=== PATIENT | female | born 1985 | race African-American/Black ===

== ENCOUNTER 2016-11-19 18:50 | Inpatient (IN) | payer OTHER ==
--- NOTE | ~2016-11-19 | CR72 ---
[facility] A Service of [facility] & [facility] RADIOLOGY TEXT RESULTS PATIENT: PEDRO CORBIN LOCATION: [facility] [id number] : 85 UNIT #: [id number] AGE: [address]: Camilo Flowers MD SEX: F ORDER DR: [id number] [facility] [address] [place], [place] [address] [id number] I MR#: [id number] Acc #: [id number] NAME: PEDRO CORBIN : 1985 SEX: F STUDY DATE/TIME: 11/19/2016 21:42 UNIT: [facility] ROOM: [facility] STUDY DESCRIPTION: CR Chest Single View Portable Attending Physician: Camilo Flowers M.D. Ordering Physician: Love Dexter M.D. Primary Care Physician: No Primary Care Physician MEDICAL IMAGING REPORT This report is preliminary unless electronic signature is present EXAM Portable chest. HISTORY Weakness, increasing blood sugar, diabetic; symptoms for 2 days. FINDINGS A single AP portable view of the chest shows both lungs to be clear. The heart is normal in size. The mediastinal contour is normal. No significant bone abnormalities are seen. IMPRESSION Normal portable chest. Dictated by... Mary Montgomery M.D. THIS IS AN ELECTRONICALLY VERIFIED REPORT Mary Montgomery M.D. at 11/20/2016 8:43 PM Rani TD: 11/20/2016 11:22 JOB #: [id number] MEDICAL IMAGING REPORT COPY
--- NOTE | ~2016-11-19 | HP ---
Unit #: [id number] #: [id number] Patient: PEDRO CORBIN [id number] [address] [address] [id number] I MR#: [id number] NAME: PEDRO CORBIN ROOM: 36305 Age: 31 Sex: F Admission Date: 11/19/2016 : 1985 Attending Physician: Love Dexter M.D. Primary Care Physician: Primary Care Physician No HISTORY AND PHYSICAL CHIEF COMPLAINT Uncontrolled insulin-dependent diabetes mellitus, suicidal ideation, noncompliance. HISTORY OF PRESENT ILLNESS This 31-year-old female with IDDM, polysubstance abuse, noncompliance, was [facility] for uncontrolled diabetes mellitus. The patient is a poor historian, and I have to prompt her several times to answer my questions. Apparently, she is homeless and not taking her insulin or any other medications. She presented to [facility] with suicidal ideation stating that she wanted to walk into traffic. She was found to have an Accu-Chek of greater than 600 and sent to this ER for further treatment. Labs in this ER show a serum glucose of 877, pseudohyponatremia, no acidosis. She currently is receiving 2 liters of saline and an insulin drip at 5 units per hour was ordered by the ER physician. She was last admitted for diabetic ketoacidosis March 2016. PAST MEDICAL HISTORY 1. IDDM. Details are unknown. Patient last was hospitalized at this facility March 2016 for diabetic ketoacidosis with PID. Apparently, her usual Accu-Cheks range from 200-300. 2. Polysubstance abuse. 3. Suicidal ideation requiring admission to [facility] in the past. 4. No previous surgeries. ALLERGIES None. HOME MEDICATIONS None. [facility] her medications included: 1. Sliding scale NovoLog. 2. Levemir 26 units daily. 3. Neurontin 300 mg daily. 4. Cymbalta 30 mg daily. 5. Vistaril 50 mg q.6 h. p.r.n. 6. Trazodone 50 mg p.o. h.s. p.r.n. SOCIAL HISTORY The patient states that she is homeless. Smokes one pack per day of tobacco. Uses crack cocaine. States that her alcohol use is dependent upon her drug abuse. She is somewhat vague. Unit #: [id number] #: [id number] Patient: PEDRO CORBIN FAMILY HISTORY Positive for diabetes. REVIEW OF SYSTEMS Impossible to obtain as it is difficult for me to get the patient to answer my questions. PHYSICAL EXAMINATION VITAL SIGNS: Temperature 98.4, pulse 68, respirations 20, blood pressure 104/58, O2 saturation 99% on room air. GENERAL: Unhappy-appearing, thin, 31-year-old female currently in no acute distress. HEENT: Eyes PERRLA. Extraocular muscles are intact. Pharynx benign. NECK: Supple without adenopathy or thyromegaly. CHEST: Clear. HEART: Tachy S1, S2 without murmur. ABDOMEN: Bowel sounds are present. No hepatosplenomegaly, tenderness or masses. EXTREMITIES: Without clubbing, cyanosis, or edema. Pedal pulses are present. No ulcers on the feet. No definite track fernando over the arms. NEUROLOGIC: Patient is mildly somnolent but easily arousable. Cranial nerves intact. She has equal strength throughout. She seems very unhappy at being in the ER. DIAGNOSTIC STUDIES LABORATORY: Hematocrit 45.7, normal white count and platelet count. SMA-12 glucose 877, sodium 125 which corrects to 138, chloride 88. BHOB 0.91 which is mildly elevated. Beta HCG is negative. Urinalysis positive glucose, no significant white or red cells. ASSESSMENT 1. Uncontrolled insulin-dependent diabetes mellitus, patient is noncompliant. 2. Suicidal ideation. Patient wanted to run in traffic. She was sent from [facility] to this facility for clearance. 3. Noncompliance with medicines. 4. Polysubstance abuse. 5. Homeless. 6. Pseudohyponatremia. PLAN 1. IV insulin drip until Accu-Cheks improve. 2. IV fluids, obtain frequent chemistries. 3. Hemoglobin A1c. Urine toxicology screen and chest x-ray. 4. DVT and gastritis prophylaxis. 5. Restart Neurontin, Cymbalta and trazodone. 6. 72-hour hold with one-to-one sitter. 7. [facility] to see when patient is medically stable. Dictated by Love Dexter M.D. AML/nathan TD: 11/19/2016 22:09 Unit #: [id number] #: [id number] Patient: PEDRO CORBIN JOB #: [id number] HISTORY AND PHYSICAL X Love Dexter MD X HISTORY AND PHYSICAL
--- NOTE | ~2016-11-19 | DS ---
Unit #: [id number] #: [id number] Patient: PEDRO CORBIN [id number] [address] [address] [id number] I MR#: [id number] NAME: PEDRO CORBIN ROOM: 241 Age: 31 Sex: F Admission Date: 11/19/2016 : 1985 Discharge Date: 11/20/2016 Attending Physician: Camilo Flowers M.D. Primary Care Physician: No Primary Care Physician DISCHARGE SUMMARY DISCHARGE DIAGNOSES 1. Hyperosmotic hyperglycemia state. 2. Uncontrolled type 2 diabetes. 3. Suicidal ideation. 4. Noncompliance. 5. Polysubstance abuse. 6. Homelessness. WILDLIFE ECOLOGY PROFESSOR None. PROCEDURE None. DIAGNOSTIC STUDIES LABORATORY: On the morning of discharge, the patient's labs with BMP: Glucose 380, BUN 11, creatinine 0.7, sodium 137, potassium 4.3, chloride 107, CO2 of 27, calcium 8.5. Magnesium 1.7. Total protein 5.4, total bilirubin 0.8, AST 12, ALT 14, alkaline phosphatase 46. Hemoglobin A1c not done. CBC with WBC of 6.4, RBC 4.63, hemoglobin 4.1, hematocrit 42.4, MCV 91.2, MCH 30.3, MCHC 33.3, RDW 15.1, platelets 181,000, MPV is 9.9. The patient's urine drug screen was positive for cocaine. No evidence of UTI on urinalysis. IMAGING: None. HOSPITAL COURSE The patient is a 31-year-old female with history of insulin-dependent diabetes, polysubstance abuse, noncompliant, homelessness who was sent from [facility] due to uncontrolled diabetes. The patient states that she is homeless and presented to [facility] with suicidal ideation stating that she wanted to walk into traffic. Accu-Cheks there done was greater than 600 and was sent to [facility] for further treatment. Her serum glucose in the ER was 877 with pseudohyponatremia but no acidosis. She had received 2 L of saline and was started on an insulin drip of 5 units. Following only a couple of hours, repeat Accu-Chek was down to 297, then down to 151. Therefore, the insulin drip was stopped. She had continued to receive IV fluid. Was given Levemir 18 units subcutaneously and started on 3 units with meals along with a low-dose sliding scale insulin. At this time, the patient is stable with regards to her blood sugar. At this time, she does deny any suicidal thoughts nor homicidal thoughts to me. The patient is under 72 hour hold from [facility]. I am asking [facility] to re-evaluate this patient for the need of continued treatment there with Unit #: [id number] #: [id number] Patient: PEDRO CORBIN for her presentation to them with suicidal thoughts as well as ongoing substance abuse. At this time, the patient is medically stable to be discharged over there if continuing treatment is needed there. DISCHARGE CONDITION Stable. Dictated by... Fran Lindo PA-C for Whit Hernandez TD: 11/20/2016 10:06 JOB #: [id number] DISCHARGE SUMMARY X X DISCHARGE SUMMARY
[~2016-11-19 18:50] MED LIST: LANTUS100 U/ML; METFORMIN HYDRO25 GM
[2016-11-19 18:59] LABS: BASOPHIL# 0.1 X10e3 (0-0.3); BASOPHIL% 0.8 % (0-2.5); EOSINOPHIL# 0.1 X10e3 (0-0.7); EOSINOPHIL% 1.2 % (0.0-7.0); HEMATOCRIT 45.7 % (35.0-45.0); HEMOGLOBIN 14.8 gm/dL (12.0-16.0); LYMPHOCYTE% 31.4 % (17.0-45.0); MEAN CELL VOLUME 94.1 FL (83-96); MEAN CORPUSCULAR HEMOGLOBIN 30.5 PG (28-34); MEAN CORPUSCULAR HGB CONC 32.4 g/dL (30-36); MEAN PLATELET VOLUME 10.4 FL (6.5-11.5); MONOCYTE# 0.3 X10e3 (0-1.0); MONOCYTE% 5.1 % (3.0-12.0); NEUTROPHIL# 3.9 X10e3 (1.5-7.1); NEUTROPHIL% 61.5 % (40-75); PLATELET COUNT 196 X10e3 (140-420); RED BLOOD COUNT 4.85 X10e (3.90-5.30); RED CELL DISTRIBUTION WIDTH 14.9 % (11.0-15.5); WHITE BLOOD COUNT 6.4 X10e3 (4.0-10.5)
[2016-11-19 19:05] LABS: DIFF IND NO
[2016-11-19 19:12] LABS: URINE SOURCE CLEAN CATCH
[2016-11-19 19:16] LABS: URINE APPEARANCE CLEAR; URINE BILIRUBIN NEG (NEG); URINE BLOOD NEG (NEG); URINE COLOR YELLOW; URINE GLUCOSE >1000 MG/DL (NEG); URINE KETONE NEG (NEG); URINE LEUKOCYTE ESTERASE NEG (NEG); URINE NITRATE NEG (NEG); URINE PH 7.5 (5-8); URINE PROTEIN NEG (NEG); URINE SPECIFIC GRAVITY 1.036 (1.003-1.035); URINE UROBILINOGEN 0.2 MG/DL (NEG)
[2016-11-19 19:22] LABS: CULTURE INDICATED? NO
[2016-11-19 19:45] LABS: ALBUMIN SERUM 3.7 g/dL (3.5-5.0); ALKALINE PHOSPHATASE 71 U/L (32-92); ALT (SGPT) 17 U/L (10-40); AST (SGOT) 15 U/L (10-42); BETA HYDROXYBUTYRATE 0.91 MMOL/L (0.02-0.27); BILIRUBIN, DIRECT 0.1 mg/dL (0.0-0.2); BILIRUBIN,INDIRECT 1.2 mg/dL (0.0-0.9); BILIRUBIN,TOTAL 1.3 mg/dL (0.2-2.0); BLOOD UREA NITROGEN 15 mg/dL (9-23); BUN/CREATININE RATIO 18.75; CALCIUM SERUM 9.3 mg/dL (8.4-10.2); CARBON DIOXIDE 27 mmol/L (22-31); CHLORIDE 88 mmol/L (100-111); CREATININE SERUM 0.8 mg/dL (0.6-1.4); GLOM FILT RATE Estimated ABOVE60 mL/min (>60); POTASSIUM 4.8 mmol/L (3.5-5.1); PROTEIN TOTAL SERUM 6.6 g/dL (6.0-8.3)
[2016-11-19 19:46] LABS: GLUCOSE FASTING 877 mg/dL (70-110)
[2016-11-19 19:47] LABS: SODIUM 125 mmol/L (135-145)
[2016-11-19 21:56] LABS: AMPHETAMINE NEG (NEG); BARBITURATES NEG (NEG); BENZODIAZEPINES NEG (NEG); COCAINE POS (NEG); MARIJUANA NEG (NEG); OPIATES NEG (NEG); TRICYCLIC ANTIDEPRESSANTS NEG (NEG); U METHADONE NEG (NEG)
[2016-11-19 22:00] LABS: BLOOD UREA NITROGEN 12 mg/dL (9-23); CALCIUM SERUM 8.7 mg/dL (8.4-10.2); CARBON DIOXIDE 25 mmol/L (22-31); CHLORIDE 102 mmol/L (100-111); CREATININE SERUM 0.8 mg/dL (0.6-1.4); GLOM FILT RATE Estimated ABOVE60 mL/min (>60); GLUCOSE FASTING 494 mg/dL (70-110); MAGNESIUM 1.8 mg/dL (1.6-3.0); POTASSIUM 3.8 mmol/L (3.5-5.1); SODIUM 133 mmol/L (135-145)
[2016-11-19 23:51] LABS: BLOOD UREA NITROGEN 11 mg/dL (9-23); BUN/CREATININE RATIO 15.71; CALCIUM SERUM 9.1 mg/dL (8.4-10.2); CARBON DIOXIDE 27 mmol/L (22-31); CHLORIDE 106 mmol/L (100-111); CREATININE SERUM 0.7 mg/dL (0.6-1.4); GLOM FILT RATE Estimated ABOVE60 mL/min (>60); GLUCOSE FASTING 193 mg/dL (70-110); MAGNESIUM 1.8 mg/dL (1.6-3.0); POTASSIUM 3.7 mmol/L (3.5-5.1); SODIUM 138 mmol/L (135-145)
[2016-11-20 06:02] LABS: HEMATOCRIT 42.2 % (35.0-45.0); HEMOGLOBIN 14.1 gm/dL (12.0-16.0); MEAN CELL VOLUME 91.2 FL (83-96); MEAN CORPUSCULAR HEMOGLOBIN 30.3 PG (28-34); MEAN CORPUSCULAR HGB CONC 33.3 g/dL (30-36); MEAN PLATELET VOLUME 9.9 FL (6.5-11.5); RED BLOOD COUNT 4.63 X10e (3.90-5.30); RED CELL DISTRIBUTION WIDTH 15.1 % (11.0-15.5); WHITE BLOOD COUNT 6.4 X10e3 (4.0-10.5)
[2016-11-20 06:36] LABS: ALBUMIN SERUM 2.9 g/dL (3.5-5.0); ALKALINE PHOSPHATASE 46 U/L (32-92); ALT (SGPT) 14 U/L (10-40); AST (SGOT) 12 U/L (10-42); BILIRUBIN,TOTAL 0.8 mg/dL (0.2-2.0); BLOOD UREA NITROGEN 11 mg/dL (9-23); BUN/CREATININE RATIO 15.71; CALCIUM SERUM 8.5 mg/dL (8.4-10.2); CARBON DIOXIDE 27 mmol/L (22-31); CHLORIDE 107 mmol/L (100-111); CREATININE SERUM 0.7 mg/dL (0.6-1.4); GLOM FILT RATE Estimated ABOVE60 mL/min (>60); GLUCOSE FASTING 380 mg/dL (70-110); MAGNESIUM 1.7 mg/dL (1.6-3.0); POTASSIUM 4.3 mmol/L (3.5-5.1); PROTEIN TOTAL SERUM 5.4 g/dL (6.0-8.3); SODIUM 137 mmol/L (135-145)
== END 2016-11-20 20:00 | DRG 638 ==
LOC: CED 18:50 → CEDOF 21:00 → C2A 11-20 01:15
PROVIDERS: Emergency Medicine; Internal Medicine
DX: E11.00 Type 2 diabetes mellitus with hyperosmolarity without nonketotic hyperglycemic-hyperosmolar coma (NKHHC) (principal); R45.851 Suicidal ideations; E87.1 Hypo-osmolality and hyponatremia; Z79.4 Long term (current) use of insulin; Z91.14 Patient's other noncompliance with medication regimen; F14.10 Cocaine abuse, uncomplicated; Z59.0 Homelessness; F17.210 Nicotine dependence, cigarettes, uncomplicated; E11.65 Type 2 diabetes mellitus with hyperglycemia
CPT/HCPCS: 36415; 71010; 80048; 80053; 80076; 80307; 81003; 82010; 82947; 83036; 83735; 84703; 85025; 85027; 87806; 99285; J1644; J1815

== ENCOUNTER 2016-11-20 20:18 | Inpatient (IN) | payer OTHER ==
--- NOTE | ~2016-11-20 | HP ---
Unit #: [id number] #: [id number] Patient: PEDRO CORBIN [id number] [facility] [address] [place] [address] [id number] I MR#: [id number] NAME: PEDRO CORBIN ROOM: P173 Age: 31 Sex: F Admission Date: 11/20/2016 : 1985 Attending Physician: Lopez Vogt M.D. Admitting Physician: Lopez Vogt M.D. Primary Care Physician: Primary Care Physician No HISTORY AND PHYSICAL Pedro is a 31 year old admitted to [facility] with depression and verbalizing wanting to hurt herself. She was admitted to [facility] on 11/19/16 because of her uncontrolled insulin-dependent diabetes mellitus. When medically stable, she was transferred to [facility] for psychiatric care. Patient was seen and H and P dated 11/19/16 and discharge summary dated 11/20/16 were reviewed. These are current. No changes. Please see documents from [facility]. Dictated by... Paula Kessler P.A.-C. for Whit Hernandez/edith TD: 11/22/2016 17:33 JOB #: [id number] HISTORY AND PHYSICAL X Paula Kessler HISTORY AND PHYSICAL
--- NOTE | ~2016-11-20 | CO ---
Unit #: [id number] #: [id number] Patient: PEDRO CORBIN [id number] [place] [address] [id number] I MR#: [id number] NAME: PEDRO CORBIN ROOM: 73 Age: 31 Sex: F Admission Date: 11/20/2016 : 1985 Attending Physician: Lopez Vogt M.D. Primary Care Physician: Primary Care Physician No CONSULTATION REPORT SUBJECTIVE "I've been diabetic for quite a while. I really don't know much about my medicines." OBJECTIVE Vital signs within normal limits. Blood sugar on admission had been over 400, the following day was 360, this morning was 279. Patient currently receiving sliding scale insulin and Levemir at 18 units q.h.s. in addition to metformin 500 mg p.o. daily. ASSESSMENT Insulin-dependent diabetes. PLAN No changes in current medication regimen due to decreasing blood sugar daily. Will continue observation. Dictated by... Deejay Morris/edith TD: 11/22/2016 18:52 JOB #: [id number] CONSULTATION REPORT X Vicky Leon APR X CONSULTATION REPORT
--- NOTE | ~2016-11-20 | PN ---
Unit #: [id number] #: [id number] Patient: PEDRO CORBIN [id number] [facility] [address] [place] [address] [id number] I MR#: [id number] NAME: PEDRO CORBIN ROOM: 73 Age: 31 Sex: F Admission Date: 11/20/2016 : 1985 Attending Physician: Lopez Vogt M.D. Admitting Physician: Lopez Vogt M.D. Primary Care Physician: Primary Care Physician Erin PAT NOTES DATE 11/23/2016 DISCUSSION The patient remains a bed with little participation within the therapeutic milieu. Staff reports no management issues but reports that the patient has remained seclusive to room throughout her stay in the hospital. Dictated by... Lopez Vogt M.D. CB/kev TD: 11/23/2016 21:51 JOB #: [id number] JOE PAT NOTES X Lopez Vogt MD PROGRESS NOTE
--- NOTE | ~2016-11-20 | PN ---
Unit #: [id number] #: [id number] Patient: PEDRO CORBIN [id number] [facility] [address] [place] [address] [id number] I MR#: [id number] NAME: PEDRO CORBIN ROOM: 73 Age: 31 Sex: F Admission Date: 11/20/2016 : 1985 Attending Physician: Lopez Vogt M.D. Admitting Physician: Lopez Vogt M.D. Primary Care Physician: Primary Care Physician Erin DIAZ PROGRESS NOTES DATE 11/22/2016 DISCUSSION The patient is abed today. She continues to exhibit depressed mood and suicidal ideation as well as hopelessness related to her current life situation. She exhibits no signs or symptoms of withdrawal. Dictated by... Lopez Vogt M.D. CB/edith TD: 11/22/2016 15:32 JOB #: [id number] [facility] PROGRESS NOTES X Lpoez Vogt MD X PROGRESS NOTE
--- NOTE | ~2016-11-20 | PA ---
Unit #: [id number] #: [id number] Patient: PEDRO CORBIN [id number] [facility] [address] [place] [address] [id number] I MR#: [id number] NAME: PEDRO CORBIN ROOM: P173 Age: 31 Sex: F Admission Date: 11/20/2016 : 1985 Date of Assessment: 11/21/2016 Attending Physician: Lopez Vogt M.D. Admitting Physician: Lopez Vogt M.D. Primary Care Physician: Primary Care Physician No PSYCHIATRIC ASSESSMENT IDENTIFYING INFORMATION The patient is a 31-year-old homeless female with a history of methamphetamine and cocaine abuse, admitted with recurrent abuse of crack cocaine, and methamphetamine. She was admitted in transfer from [facility] where she had been admitted with uncontrolled diabetes. CHIEF COMPLAINT None given. INFORMANT(S) Patient, reliability is fair. HISTORY OF PRESENT ILLNESS The patient is a 31-year-old female well known to this physician. She was admitted in transfer from [facility] where she had been transferred after presenting to this facility basically complaining of suicidal ideation but having been found to have an elevation in blood sugar. The patient reports that she is homeless and has not been attending to her activities of daily living, diabetic care, etc. The patient continues to endorse positive hopelessness and suicidal ideation during today's interview. For more complete history of present illness, please refer to previously dictated notes. PAST PSYCHIATRIC HISTORY Reviewed, no changes. PAST MEDICAL HISTORY Reviewed, no changes. MEDICATIONS Trazodone, Vistaril, Neurontin, Levemir, Pepcid, metformin, Cymbalta, and Accu-Cheks. ALLERGIES None. FAMILY HISTORY Reviewed, no changes. SOCIAL HISTORY Reviewed, no changes. Unit #: [id number] #: [id number] Patient: PEDRO CORBIN MENTAL STATUS EXAMINATION Examination at this time reveals the patient to be a thin female who appears to be in significant physical distress. She is awake, alert, and oriented in all spheres. Her mood is mildly dysphoric, her affect is constricted. Speech is generally well-coherent. There are no gross deficits in memory or cognition noted. Intelligence is judged to be in the average range based on fund of knowledge. The patient is cooperative throughout the interview. She is currently endorsing suicidal ideation. She denies homicidal ideation. She denies any psychotic symptoms. Her judgment and insight appear to be reasonably intact. ASSETS AND LIABILITIES The patient's assets are to be assessed. Liabilities: Lack of resources. DIAGNOSTIC IMPRESSION 1. Cocaine use disorder. 2. Methamphetamine use disorder. 3. Dysthymic disorder. 4. Diabetes mellitus. TREATMENT PLAN The patient remains hospitalized for safety and stabilization. Suicide precautions are in place. The patient will participate in appropriate order of milieu activities, and I will ask outreach and education social worker to see her regarding possible disposition options. Transfer to a substance abuse unit will be ordered. ESTIMATED LENGTH OF STAY 3 to 5 days. Dictated by... Lopez Vogt M.D. Alexy TD: 11/22/2016 08:41 JOB #: [id number] PSYCHIATRIC ASSESSMENT X Lopez Vogt MD X PSYCHIATRIC ASSESSMENT
--- NOTE | ~2016-11-20 | DS ---
Unit #: [id number] #: [id number] Patient: PEDRO CORBIN [id number] [facility] [address] [place] [address] [id number] I MR#: [id number] NAME: PEDRO CORBIN ROOM: P173 Age: 31 Sex: F Admission Date: 11/20/2016 : 1985 Discharge Date: 11/24/2016 Attending Physician: Lopez Vogt M.D. Primary Care Physician: Primary Care Physician No DISCHARGE SUMMARY REASON FOR ADMISSION The patient is a 31-year-old white female, admitted in transfer from [facility], where she had been treated for uncontrolled diabetes. She was admitted with increasing suicidal ideation and has history of cocaine abuse. HOSPITAL COURSE The patient was admitted to the [facility] unit and placed on suicide precautions. Home medications were continued. The patient's stay in the hospital was a fairly uneventful one. She exhibited little in the way of signs or symptoms of withdrawal, but did not participate to any significant degree within the therapeutic milieu. By 11/24/2016, the patient was in brighter spirits and requested discharge, it was so ordered. FINAL DIAGNOSES Dysthymic disorder, cocaine use disorder, diabetes mellitus, gastroesophageal reflux disease. DISPOSITION ON DISCHARGE The patient is discharged on the following medications; Levemir 23 units at bedtime for diabetic management, NovoLog sliding scale t.i.d. for diabetic management, Glucophage 500 mg b.i.d. before meals for diabetic management, Cymbalta 30 mg daily for depression, Pepcid 20 mg b.i.d. for GERD, Neurontin 300 mg at bedtime for insomnia, Vistaril 50 mg q.6 hours p.r.n. anxiety, Desyrel 50 mg at h.s. p.r.n. insomnia. DISCHARGE INSTRUCTIONS No dietary or physical restrictions were placed on the patient at the time of discharge. FOLLOWUP Followup will take place through the auspices of community mental health resources. PROGNOSIS The patient's prognosis is considered fair. Dictated by... Lopez Vogt M.D. CB/jose angel Unit #: [id number] #: [id number] Patient: PEDRO CORBIN TD: 11/25/2016 01:36 JOB #: [id number] DISCHARGE SUMMARY Page 1 of 1 X Lopez Vogt MD X DISCHARGE SUMMARY
== END 2016-11-24 16:25 | disposition home or self-care (01) | DRG 897 ==
LOC: P1S 20:18 → P1E 11-21 18:33
DX: F14.10 Cocaine abuse, uncomplicated (principal); F15.10 Other stimulant abuse, uncomplicated; F34.1 Dysthymic disorder; E11.9 Type 2 diabetes mellitus without complications; Z79.4 Long term (current) use of insulin; K21.9 Gastro-esophageal reflux disease without esophagitis
CPT/HCPCS: 82947